=== PATIENT | female | born 1990 | race Caucasian/White ===

== ENCOUNTER → 2022-06-23 | Emergency (ER) | payer OTHER ==
[~2022-06-23] MED LIST: ACETAMINOPHEN 1000 MG/100 ML BAG IVPB ONE; ACETAMINOPHEN INJECTION 100 ML IVPB ONE; DIPHTH,PERTUSS(ACELL),TET 0.5 ML DISP.SYRIN IM ONE; KETAMINE HCL 200 MG/20 ML VIAL ONE; LIDOCAINE HCL 2% (20ML MULTI-DOSE VIAL) ONE; LIDOCAINE HCL 2% (50ML VIAL) INF ONE; TETANUS AND DIPHTHERIA TOXOID 0.5 ML DISP.SYRIN IM ONE; morphine CARPU-JECT 2 MG/1 ML DISP.SYRIN IVPUSH ONE; morphine SULFATE 4 MG/ML VIAL ONE
[2022-06-23 02:35] VITALS: TEMP 98.6; BMI 25.0
[2022-06-23 05:50] VITALS: BP 120/69; PULSE 112; RESP 18
== END | disposition short-term general hospital (02) ==
LOC: FER 01:26
PROC: 3E0333Z Introduction of Anti-inflammatory into Peripheral Vein, Percutaneous Approach (ICD-10-PCS; principal; 2022-06-23)
PROC: 3E033NZ Introduction of Analgesics, Hypnotics, Sedatives into Peripheral Vein, Percutaneous Approach (ICD-10-PCS; 2022-06-23)
PROC: 3E0234Z Introduction of Serum, Toxoid and Vaccine into Muscle, Percutaneous Approach (ICD-10-PCS; 2022-06-23)
DX: S63.269A Dislocation of metacarpophalangeal joint of unspecified finger, initial encounter (principal); W01.0XXA Fall on same level from slipping, tripping and stumbling without subsequent striking against object, initial encounter
CPT/HCPCS: 73140-TC-RT-FY; 90471; 90715; 96374; 96375; 99285-25